=== PATIENT | female | born 1950 | race Hispanic/Latino ===

== ENCOUNTER 2018-02-02 07:29 | Day surgery (SDC) | payer MEDICARE ==
[2012-08-11 23:06] VITALS: PULSE 72
[2018-01-30 09:58] VITALS: BMI 47.0
--- NOTE | 2018-02-02 07:42 | HP ---
DATE OF EXAM: 01/30/2018 REASON FOR ADMISSION: Left heart cath, possible angioplasty, abnormal stress test. BRIEF CLINICAL HISTORY: This is a 67-year-old morbidly obese female with past medical history significant for atrial fibrillation, hyperlipidemia, hypertension, obesity, scheduled for elective cardiac cath, possible angioplasty because of abnormal stress test and cardiomyopathy, possible significant for hypertension, hyperlipidemia, atrial fibrillation, chronic; history of GI bleed, off Coumadin. Past history of as mentioned GI bleed. PAST SURGICAL HISTORY: Nothing significant. CURRENT MEDICATION: The patient is taking digoxin 0.25 mg daily, atorvastatin 10 mg daily, atenolol 50 mg daily, Plavix 75 mg daily, and aspirin 81 mg daily. Recent cardiac workup as follow: The patient had echocardiography done on 12/29/2017, that showed ejection fraction 15-20%, cardiomyopathy. The patient was afebrile at the time study, trace aortic regurgitation, moderate to severe mitral regurgitation, moderate tricuspid regurgitation. RV systolic pressure of 46 mmHg. The patient has stress test dated 12/24/2017 that is a Lexiscan that showed abnormal myocardial perfusion study. Partially reversible anteroseptal, apical and anterior, inferior defect suggestive of ischemia. Ejection fraction 20%. In comparison to last stress study dated 05/15/2012 that shows changes as new. These changes are new since 2012. IMPRESSION: A 67-year-old female morbidly obese with past medical history of cardiomyopathy, hypertension, hyperlipidemia, atrial fibrillation being admitted for elective cardiac cath, possible angioplasty for abnormal stress test showing anterior septal inferior septal reversible ischemia, decreased ejection fraction, cardiomyopathy. Moderate to severe mitral regurgitation, moderate tricuspid regurgitation, trace aortic regurgitation. We loaded with Plavix, the patient is already on Plavix. PLAN: Follow the workup when it is available. Risks, benefits, alternatives explained to the patient, patient agrees, will proceed for cardiac cath. Further recommendation after cardiac catheterization. Thank you Dr. Ferrera for providing us the opportunity in taking care of the patient, Silvia Sanchez. Dana Montero MD
[2018-02-02 08:16] LABS: BASO # 0.02 K/mm3 (0.0-2.0); BASO % 0.2 % (0.0-3.0); EOS # 0.4 (0.0-0.7); EOS % 3.2 % (1.5-5.0); GRAN # 8.88 (1.4-6.5); GRAN % 76.4 % (50.0-68.0); HEMOGLOBIN 16.5 g/dL (12.0-16.0); LYMPH # 1.6 (1.2-3.4); LYMPH % 13.7 % (22.0-35.0); MEAN CELL VOLUME 86.9 fl (80.0-105.0); MEAN CORPUSCULAR HEMOGLOBIN 28.1 pg (25.0-35.0); MEAN CORPUSCULAR HGB CONC 32.4 g/dl (31.0-37.0); MEAN PLATELET VOLUME 10.3 fl (7.0-11.0); MONO # 0.8 (0.1-0.6); MONO % 6.5 % (1.0-6.0); RBC 5.87 10^6/uL (3.5-6.1); RED CELL DISTRIBUTION WIDTH 14.4 % (11.5-14.5); WHITE BLOOD COUNT 11.6 10^3/uL (4.5-11.0)
[2018-02-02 08:21] VITALS: RESP 18
[2018-02-02 08:25] LABS: INR 1.07; PARTIAL THROMBOPLASTIN TIME 30.3 Seconds (25.1-36.5); PROTHROMBIN TIME 12.3 SECONDS (9.4-12.5)
[2018-02-02 08:27] LABS: CALCIUM 9.7 mg/dL (8.4-10.5)
[2018-02-02] MEDS ORDERED: Sodium Bicarbonate (8.4%) 50 Meq Syringe IVP ONE (08:52)
[2018-02-02] MEDS ORDERED: Lidocaine 2% Inj (20ml) ONE (08:53)
[2018-02-02] MEDS ORDERED: Iohexol 350mgl/ml 50 ML ONE (08:53)
[2018-02-02] MEDS ORDERED: Nitroglycerin 50mg in D5W 0 MG/0 ML BOTTLE IV ONE (08:54)
[2018-02-02] MEDS ORDERED: Iodixanol 320 MG/ML 100 ML BOTTLE IV ONE (08:54)
[2018-02-02] MEDS ORDERED: Iodixanol 320 MG/ML 200 ML BOTTLE IV ONE (08:54)
--- NOTE | 2018-02-02 09:01 | CARD ---
APPROVED REPORT Date of service: 02/02/2018 EKG Measurement Heart [id number] <Conclusion> Atrial fibrillation Left axis deviation Nonspecific T wave abnormality PRWP Low voltage limb leads No change
[2018-02-02] MEDS ORDERED: Midazolam 2 MG/2 ML VIAL ONE (09:31)
[2018-02-02 10:33] VITALS: TEMP 98
--- NOTE | 2018-02-02 12:01 | CPOSTOP ---
DATE: 02/02/2018 SALES PLANNING MANAGER: Vickiewound care technician. TYPE OF ANESTHESIA: Moderate conscious sedation, total 2 mg of Versed and 100 of fentanyl. PRE-PROCEDURE DIAGNOSES: Unstable angina, abnormal stress test, cardiomyopathy. PROCEDURE PERFORMED: Left heart catheterization. FINDINGS: Normal coronaries and nonischemic cardiomyopathy. FINAL DIAGNOSIS: Nonischemic cardiomyopathy. POST PROCEDURE CONDITION: The patient's condition is stable. VASCULAR ACCESS SITE: Right femoral artery. CLOSURE DEVICE: Angio-Seal. TOTAL RADIATION DOSE: 3162.7 milligray unit. TOTAL FLUORO TIME: 3.8 minutes. Dana Montero MD
[2018-02-02 13:30] LABS: CALCIUM 9.1 mg/dL (8.4-10.5)
--- NOTE | 2018-02-02 18:18 | CARD ---
APPROVED REPORT Date of service: 02/02/2018 Procedure(s) performed: Left Heart Catheterization HISTORY The patient is a 67 year-old female with a history of : previous CO (> 7 days), most recent EF: 21%. (EF Method: RADIONUCLIDE), renal failure with dialysis, hypertension , dyslipidemia , cerebrovascular disease , Pt. had a stress test that showed apical, Anterior and Inferior ischemia and decrease EF-20% (approx). INDICATION The indication(s) include : positive stress test. CASE TECHNIQUE The patient was brought electively to the Cardiac Catheterization Laboratory in a fasting state and was prepped and draped in a sterile manner. The right femoral groin was infiltrated with 2% Lidocaine subcutaneous anesthesia. A 6 Fr x 11 cm Ayaka sheath was inserted into the right femoral artery without difficulty. Coronary angiography was performed using coronary diagnostic catheters. The left coronary system was accessed and visualized with a Diagnostic ,5 Fr JL 4 catheter. The right coronary system was accessed and visualized with a Diagnostic ,6 Fr AL 1 catheter. The left ventricle was accessed and visualized with a 5 Fr JR 4 catheter. Left ventricular/Aortic Valve gradient assessed on pullback. Left ventriculogram was performed in GANNON projection. Closure device was deployed with a 6 Fr Angio-Seal without any complications. The patient tolerated the procedure well and there were no complications associated with the procedure. Vessel Analysis The patient's coronary anatomy is left dominant. The left main coronary artery is a medium size vessel without significant stenosis. The left main trifurcates to the left anterior descending, circumflex, and ramus. The left anterior descending artery is a medium size vessel with diffuse calcification noted throughout this vessel and without significant stenosis. There is a 55% stenosis in the very distal segment Diffusely diseased ( diffuse tappering, but no focal flow limiting stenosis). The first diagonal branch is a medium size vessel with diffuse calcification noted throughout this vessel and without significant stenosis. The second diagonal branch is a small size vessel with diffuse calcification noted throughout this vessel and without significant stenosis. The circumflex artery is a medium size vessel with diffuse calcification noted throughout this vessel and without significant stenosis. The first obtuse marginal branch is a small size vessel with intimal irregularities and without significant stenosis. The second obtuse marginal branch is a small size vessel with intimal irregularities and without significant stenosis. The left posterior descending artery is a small size vessel with intimal irregularities and without significant stenosis. The ramus intermedius artery is a medium size vessel with intimal irregularities and without significant stenosis. The right coronary artery is a medium size vessel with diffuse calcification noted throughout this vessel and without significant stenosis. Left Ventricle The left ventricle is Moderately enlarged in size with Moderately decreased contractility. Non-Ischemic cardiomyopathy. The left ventricular ejection fraction is estimated to be 25%. The left ventricular end diastolic pressure is 20-25 mmHg. There was no gradient across the aortic valve upon pullback. Conclusion Non Obstructive CAD Limited to Distal LAD diffusely diseased 55%, Diffuse tapperring, but no focal flow limiting stenosis. Non Ischemic CMP- EF-25%, EDP-20-25 mm of Hg. only 15-20 cc Contrast used, Followed by Aggressive IV Hydration with bicarb drip and F/u SMA-7 ,before goes home, ( Hx of acute kidney injury requiring dialysis in the past). Recommendations Aggressive Medical TherapyCardiac Risk Reduction Program Weight Loss Reduction Program Dig, Diuretic, ANA, Coreg, and spirolactone as renal Fx is tolerated may consider Enteresto as BP is tolerated. Re-assess LV Fx. in 3-6 months and if remains less than 35%, consider AICD. F/u SMA-7 in 1-2 weeks to monitor renal Fx.post cath. with you. Cc; drs. Ferrera/ Adria
[2018-02-03 00:14] VITALS: BP 141/82; PULSE 70; O2SAT 94
[2018-02-03] MEDS ORDERED: Digoxin 250 mcg (0.25 mg) Tab PO SCH (10:00)
== END 2018-02-02 15:00 | disposition home or self-care (01) ==
LOC: CATH 07:29
PROVIDERS: ATTEND Internal Medicine Cardiovascular Disease
DX: I42.9 Cardiomyopathy, unspecified (principal); I25.10 Atherosclerotic heart disease of native coronary artery without angina pectoris; I08.3 Combined rheumatic disorders of mitral, aortic and tricuspid valves; I10 Essential (primary) hypertension; E66.01 Morbid (severe) obesity due to excess calories; Z68.42 Body mass index [BMI] 45.0-49.9, adult; I25.2 Old myocardial infarction; I48.91 Unspecified atrial fibrillation; R06.02 Shortness of breath; E78.5 Hyperlipidemia, unspecified